=== PATIENT | female | born 1955 | race Caucasian/White ===

== ENCOUNTER 2016-08-11 11:04 | Emergency (ER) | payer BC ==
[~2016-08-11 11:04] MED LIST: COLA100C2 OR; MILKSUS OR; MIRALEX PO; OXYC5CAP4 OR; ZANA4CAP OR; [UNRECOGNIZED DRUG - OTHER]; lidoderm patch TD; senokot PO
[2016-08-11] MEDS ORDERED: ALBUTEROL 90 MCG/ACT 8GM HFA INHALER As Ordered ONE (11:53)
[2016-08-11 12:18] LABS: BASO % 0.5 % (0.0-1.0); EOS # 0.1 K/mm3 (0.0-0.50); EOS % 1.9 % (0.0-3.0); LARGE UNSTAINED CELL # 0.2 K/mm3 (0.0-0.4); LARGE UNSTAINED CELL % 2.6 % (0.0-4.0); LYMPH # 1.6 K/mm3 (1.5-4.5); LYMPH % 22.9 % (24.0-44.0); MEAN CORPUSCULAR HEMOGLOBIN 28.4 pg (27.0-33.0); MEAN CORPUSCULAR HGB CONC 32.7 g/dl (32.0-36.5); MEAN CORPUSCULAR VOLUME 86.8 fl (80.0-96.0); MONO # 0.3 K/mm3 (0.0-0.8); MONO % 4.6 % (0.0-5.0); NEUTROPHILS # 4.7 K/mm3 (1.8-7.7); NEUTROPHILS % 67.5 % (36.0-66.0); PLATELET COUNT, AUTOMATED 363 k/mm3 (150-450); RED CELL DISTRIBUTION WIDTH 12.8 % (11.5-14.5); WHITE BLOOD COUNT 6.9 K/mm3 (4.0-10.0)
--- NOTE | 2016-08-11 12:52 | EDDOCDS ---
Physician Documentation [facility] Name: Roxanna Wren Age: 60 yrs Sex: Female : 1955 Arrival Date: 08/11/2016 Time: 11:04 Bed I5 / M5 Private MD: Clay Perry MD Disposition: 08/11/16 12:38 Discharged to Home/Self Care. Impression: Acute bronchospasm. - Condition is Stable. - Discharge Instructions: Bronchospasm, Adult, Metered Dose Inhaler with Spacer. - Prescriptions for Claritin 10 mg Oral Tablet - take 1 tablet by ORAL route once daily As needed; 30 tablet. - Medication Reconciliation, Local Pharmacy Hours form. - Follow up: Clay Perry; When: Call to arrange an appointment; Reason: Recheck today's complaints, allergy referral. Follow up: Emergency Department; When: As needed; Reason: Trouble breathing, Worsening of conditions. - Problem is new. - Symptoms have improved. Historical: - Allergies: PENICILLINS (Unknown); - Home Meds: 1. [place] Oil 1,000 mg oral cap daily (Last dose: 08/11/2016 07:30) 2. aspirin 81 mg Oral tab 1 tab once daily (Last dose: 08/11/2016 07:30) 3. [place]-3 Fish Oil oral Unknown oral daily (Last dose: 08/11/2016 07:30) - PMHx: GERD; - PSHx: 2 C-sections; Breast Reduction; eyelid surgery; Tonsillectomy; Arthroscopy, Knee- Right; - Social history: Smoking status: Patient states was never smoker of tobacco. No barriers to communication noted, The patient speaks fluent [place]. - Family history: Not pertinent. - : The pt / caregiver states he / she is not on anticoagulants. Home medication list is obtained from the patient. - Exposure Risk Screening:: None identified. Vital Signs: 08/11 11:06 BP 144 / 87; Pulse 58; Resp 18 S; Temp 97.0(O); Pulse Ox 98% on R/A; Weight 85.73 kg / gr2 189 lbs (R); Height 5 ft. 4 in. (162.56 cm) (R); Pain 2/10; 12:49 BP 127 / 86; Pulse 61; Resp 18; Pulse Ox 97% on R/A; mcp 11:06 Body Mass Index 32.44 (85.73 kg, 162.56 cm) gr2 MDM: 11:21 ECG WITH READING ER PHYS+CARDIAG ordered. EDMS 11:43 Ventolin Inhaler 2 puffs Inhalation once ordered. ar2 11:43 MDI teaching with Spacer ordered. ar2 11:44 CBC with Diff Ordered. EDMS 11:44 Troponin Ordered. EDMS 11:58 Financial registration complete. lg 12:29 CBC with Diff Reviewed. ar2 12:29 Troponin Reviewed. ar2 Administered Medications: 12:01 Drug: Ventolin 2 puffs [Ventolin HFA 90 mcg/actuation aerosol inhaler (2 puffs)] Route: jjr Inhalation; Signatures: Dispatcher [employer] Gabrielle Hernandez RN RN kpj Peters, Mary, RN RN mcp Ganter, LoriLee, Darnell Reg Des Bryant PA-C PA-C ar2 Pham Younger RN jjr MTDD
--- NOTE | 2016-08-11 12:52 | EDDOCDS ---
Nurse's Notes [facility] Name: Roxanna Wren Age: 60 yrs Sex: Female : 1955 Arrival Date: 08/11/2016 Time: 11:04 Bed I5 / M5 Private MD: Clay Perry MD Diagnosis: Acute bronchospasm Presentation: 08/11 11:11 Presenting complaint: Patient states: got new furniture at work 1 month ago , began [facility] with tingling in lips ,now burning in throat, hard to breathe and was sweating and pains in her chest. symptoms resolve hours after leaving work. Onset: The symptoms/episode began/occurred 1 month(s) ago. This patient has not experienced a previous allergic reaction. Anaphylaxis evaluation, the patient reports or I have noted the following symptoms which indicate a significant risk of anaphylaxis: chest pain shortness of breath. Adult Sepsis Screening: The patient does not have new or worsening altered mentation. Patient's respiratory rate is less than 22. Systolic blood pressure is greater than 100. Patient has a qSOFA score of 0- Negative Sepsis Screen. Suicide/Homicide risk assessment- the patient denies having any suicidal and/or homicidal ideations and does not present with any other emotional, behavioral or mental health complaints. 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 Transition of care: patient was not received from another setting of care. 11:11 Acuity: GERALDINE Level 3 [facility] 11:11 Method Of Arrival: Walkin/Carried/Asstd [facility] Triage Assessment: 11:17 General: Appears in no apparent distress, comfortable, Behavior is appropriate for age, kpj pleasant. Pain: Location: mid-sternal area Pain currently is 2 out of 10 on a pain scale. Quality of pain is described as pressure. Pt Declines HIV testing. Neurological: Level of Consciousness is awake, alert, Oriented to person, place, time. EENT: Reports lips feel tingly. Cardiovascular: Chest pain quality is pressure, is located in substernal area. Respiratory: Airway is patent Respiratory effort is even, unlabored, Reports shortness of breath. Derm: Skin is pink, warm & dry. Historical: - Allergies: PENICILLINS (Unknown); - Home Meds: 1. [place] Oil 1,000 mg oral cap daily (Last dose: 08/11/2016 07:30) 2. aspirin 81 mg Oral tab 1 tab once daily (Last dose: 08/11/2016 07:30) 3. [place]-3 Fish Oil oral Unknown oral daily (Last dose: 08/11/2016 07:30) - PMHx: GERD; - PSHx: 2 C-sections; Breast Reduction; eyelid surgery; Tonsillectomy; Arthroscopy, Knee- Right; - Social history: Smoking status: Patient states was never smoker of tobacco. No barriers to communication noted, The patient speaks fluent Nigerien. - Family history: Not pertinent. - : The pt / caregiver states he / she is not on anticoagulants. Home medication list is obtained from the patient. - Exposure Risk Screening:: None identified. Screenin:03 Screening information is obtained from the patient. Fall risk: No risks identified. jjr Assistance ADL's: requires no assistance with activities of daily living. Abuse/DV Screen: The patient / caregiver reports he/she is: not in a situation that causes fear, pain or injury. Nutritional screening: No deficits noted. Advance Directives: There is no active DNR order. home support is adequate. Assessment: 12:01 General: Appears in no apparent distress, well nourished, well groomed, Behavior is jjr appropriate for age. Neurological: No deficits noted. Cardiovascular: Reports substernal chest heaviness and difficulty taking a deep breath, also reports intermittent lips tingling notices shortly after arriving to work place. Respiratory: Airway is patent Respiratory effort is even, unlabored, Respiratory pattern is regular, Breath sounds are clear bilaterally. Derm: No deficits noted. 12:50 General: Appears in no apparent distress, Behavior is cooperative. Neurological: No mcp deficits noted. Respiratory: Airway is patent Respiratory effort is even, unlabored. Derm: Skin is pink, warm & dry. Vital Signs: 11:06 BP 144 / 87; Pulse 58; Resp 18 S; Temp 97.0(O); Pulse Ox 98% on R/A; Weight 85.73 kg gr2 (R); Height 5 ft. 4 in. (162.56 cm) (R); Pain 2/10; 12:49 BP 127 / 86; Pulse 61; Resp 18; Pulse Ox 97% on R/A; mcp 11:06 Body Mass Index 32.44 (85.73 kg, 162.56 cm) gr2 Vitals: 11:06 Log In Time: August 11, 2016 at 11:06. gr2 ED Course: 11:05 Patient visited by Susie Younger. gr2 11:05 Clay Perry is Private Physician. gr2 11:05 Patient moved to Waiting gr2 11:07 Patient visited by Susie Younger. gr2 11:07 Patient moved to Pre RCE gr2 11:14 Triage Initiated kpj 11:20 Patient moved to Triage 1 kpj 11:20 Patient moved to Triage 3 srm 11:25 Des Overton PA-C is PHCP. ar2 11:25 Umberto Juarez MD is Attending Physician. ar2 11:30 EKG done. (by ED staff). Reviewed by Des Overton PA-C. rs6 11:32 Patient visited by Lilian Collier PCA. rs6 11:36 Patient visited by Des Overton PA-C. ar2 11:41 Patient moved to I5 / M5 [facility] 11:56 Troponin Sent. jam1 11:56 CBC with Diff Sent. jam1 12:03 Patient visited by Pham Younger RN. jjr 12:03 The patient / caregiver is instructed regarding the plan of care and ED course. jjr 12:10 Pt greeted and oriented to ED. Patient advised of names of staff involved in care, jam1 location of call [place], wait times and NPO status. Patient has correct armband on for positive identification. Side rails up X 1. Door closed. 12:34 Clay Prery is Referral Physician. ar2 12:51 No IV's were initiated during this patient's visit. No procedures done that require mcp assistance. Administered Medications: 12:01 Drug: Ventolin 2 puffs [Ventolin HFA 90 mcg/actuation aerosol inhaler (2 puffs)] Route: jjr Inhalation; Order Results: Lab Order: CBC with Diff; SPEC'M 08/11/16 11:55 Test: WHITE BLOOD COUNT; Value: 6.9; Range: 4.0-10.0; Units: K/mm3; Status: F Test: RED BLOOD COUNT; Value: 5.42; Range: 4.00-5.40; Abnormal: Above high normal; Units: M/mm3; Status: F Test: HEMOGLOBIN; Value: 15.4; Range: 12.0-16.0; Units: g/dl; Status: F Test: HEMATOCRIT; Value: 47.0; Range: 36.0-47.0; Units: %; Status: F Test: MEAN CORPUSCULAR VOLUME; Value: 86.8; Range: 80.0-96.0; Units: fl; Status: F Test: MEAN CORPUSCULAR HEMOGLOBIN; Value: 28.4; Range: 27.0-33.0; Units: pg; Status: F Test: MEAN CORPUSCULAR HGB CONC; Value: 32.7; Range: 32.0-36.5; Units: g/dl; Status: F Test: RED CELL DISTRIBUTION WIDTH; Value: 12.8; Range: 11.5-14.5; Units: %; Status: F Test: PLATELET COUNT, AUTOMATED; Value: 363; Range: 150-450; Units: k/mm3; Status: F Test: NEUTROPHILS %; Value: 67.5; Range: 36.0-66.0; Abnormal: Above high normal; Units: %; Status: F Test: LYMPH %; Value: 22.9; Range: 24.0-44.0; Abnormal: Below low normal; Units: %; Status: F Test: MONO %; Value: 4.6; Range: 0.0-5.0; Units: %; Status: F Test: EOS %; Value: 1.9; Range: 0.0-3.0; Units: %; Status: F Test: BASO %; Value: 0.5; Range: 0.0-1.0; Units: %; Status: F Test: LARGE UNSTAINED CELL %; Value: 2.6; Range: 0.0-4.0; Units: %; Status: F Test: NEUTROPHILS #; Value: 4.7; Range: 1.8-7.7; Units: K/mm3; Status: F Test: LYMPH #; Value: 1.6; Range: 1.5-4.5; Units: K/mm3; Status: F Test: MONO #; Value: 0.3; Range: 0.0-0.8; Units: K/mm3; Status: F Test: EOS #; Value: 0.1; Range: 0.0-0.50; Units: K/mm3; Status: F Test: BASO #; Value: 0.0; Range: 0.0-0.2; Units: K/mm3; Status: F Test: LARGE UNSTAINED CELL #; Value: 0.2; Range: 0.0-0.4; Units: K/mm3; Status: F Lab Order: Troponin; SPEC'M 08/11/16 11:55 Test: TROPONIN I; Value: < 0.02; Range: < 0.10; Units: NG/ML; Status: F Test Note: ; Troponin I Reference Interval for [place] LOCI: 99th Percentile= 0.00-0.045 ng/ml Risk Stratification: <= 0.10 ng/ml Decreased Risk for Adverse Clinical Events. 0.10-1.50 ng/ml Increased Risk for Adverse Clinical Events. Evaluation of additional criterion and/or repeat testing in 2-6 hours is suggested to rule out myocardial damage. >= 1.50 ng/ml Indicative of Myocardial Injury. Outcome: 12:38 Discharge ordered by Provider. ar2 12:51 Discharge Assessment: patient administered narcotics - no. The following High Risk [facility] Discharge criteria are identified: None. Discharged to home ambulatory. Condition: stable. Discharge instructions given to patient, Instructed on discharge instructions, follow up and referral plans. medication usage, Demonstrated understanding of instructions, medications, Pt was receptive of discharge instructions/ teaching. Prescriptions given X 1. No special radiology studies were completed. Property sent home with patient. 12:52 Patient left the ED. [facility] Signatures: Gabrielle Fuentes RN RN kpj Michelson, Staci, RN RN srm Peters, Mary, RN RN mcp Murphy, Jane, FRUIT DUMPER FRUIT DUMPER jam1 Pham Younger RN RN jjr Robertshaw, Aaron, JACINTA PAAmandaC ar2 Elizabeth Quinn,Susie Mejias RN 2 Lilian Collier, FRUIT DUMPER FRUIT DUMPER rs6 MTDD
--- NOTE | 2016-08-12 15:12 | ECGEPIP ---
Stationary ECG Study [facility] - ED Test Date: 2016-08-11 Pat Name: KHANG CORBETT Department: Room: - Gender: F Operator: jenny : 1955 Requested By: Umberto Rodriguez Order Number: [id number] Reading MD: Tish Young Measurements Intervals [place] Rate: 52 P: 38 GA: 102 QRS: 4 QRSD: 92 T: 47 QT: 405 QTc: 377 Interpretive Statements SINUS BRADYCARDIA WITH SHORT GA INTERVAL LOW QRS VOLTAGE IN PRECORDIAL LEADS NSTTW ABNORMALITY NO PRIOR FOR COMPARISON Electronically Signed On 08-12-2016 15:12:51 EST by Tish Young
--- NOTE | 2016-08-13 13:52 | EDDOCDS ---
Physician Documentation [facility] Name: Roxanna Cody Age: 60 yrs Sex: Female : 1955 Arrival Date: 08/11/2016 Time: 11:04 Bed I5 / M5 Private MD: Clay Perry MD Disposition: 08/11/16 12:38 Discharged to Home/Self Care. Impression: Acute bronchospasm. - Condition is Stable. - Discharge Instructions: Bronchospasm, Adult, Metered Dose Inhaler with Spacer. - Prescriptions for Claritin 10 mg Oral Tablet - take 1 tablet by ORAL route once daily As needed; 30 tablet. - Medication Reconciliation, Local Pharmacy Hours form. - Follow up: Clay Perry; When: Call to arrange an appointment; Reason: Recheck today's complaints, allergy referral. Follow up: Emergency Department; When: As needed; Reason: Trouble breathing, Worsening of conditions. - Problem is new. - Symptoms have improved. Historical: - Allergies: PENICILLINS (Unknown); - Home Meds: 1. [place] Oil 1,000 mg oral cap daily (Last dose: 08/11/2016 07:30) 2. aspirin 81 mg Oral tab 1 tab once daily (Last dose: 08/11/2016 07:30) 3. [place]-3 Fish Oil oral Unknown oral daily (Last dose: 08/11/2016 07:30) - PMHx: GERD; - PSHx: 2 C-sections; Breast Reduction; eyelid surgery; Tonsillectomy; Arthroscopy, Knee- Right; - Social history: Smoking status: Patient states was never smoker of tobacco. No barriers to communication noted, The patient speaks fluent [place]ayan. - Family history: Not pertinent. - : The pt / caregiver states he / she is not on anticoagulants. Home medication list is obtained from the patient. - Exposure Risk Screening:: None identified. Vital Signs: 08/11 11:06 BP 144 / 87; Pulse 58; Resp 18 S; Temp 97.0(O); Pulse Ox 98% on R/A; Weight 85.73 kg / gr2 189 lbs (R); Height 5 ft. 4 in. (162.56 cm) (R); Pain 2/10; 12:49 BP 127 / 86; Pulse 61; Resp 18; Pulse Ox 97% on R/A; mcp 11:06 Body Mass Index 32.44 (85.73 kg, 162.56 cm) gr2 MDM: 11:21 ECG WITH READING ER PHYS+CARDIAG ordered. EDMS 11:43 Ventolin Inhaler 2 puffs Inhalation once ordered. ar2 11:43 MDI teaching with Spacer ordered. ar2 11:44 CBC with Diff Ordered. EDMS 11:44 Troponin Ordered. EDMS 11:58 Financial registration complete. lg 12:29 CBC with Diff Reviewed. ar2 12:29 Troponin Reviewed. ar2 13:52 [facility] Payment Agreement was scanned into [employer] and attached to record. lg 21:20 T-Sheet-- Draft Copy was scanned into [employer] and attached to record. klr Administered Medications: 12:01 Drug: Ventolin 2 puffs [Ventolin HFA 90 mcg/actuation aerosol inhaler (2 puffs)] Route: jjr Inhalation; Signatures: Dispatcher [employer] EDGabrielle Womack RN RN kpj Peters, Mary, RN RN mcp Ganter, LoriLee, Reg Reg lg Robertshaw, Aaron, JACINTA PA-Louisa ar2 Carolina Schwarz Jessica RN jjr The chart was reviewed and I authenticate all verbal orders and agree with the evaluation and treatment provided.Attachments: 13:52 [facility] [place] Agreement lg 21:20 T-Sheet-- Draft Copy klr Chart Complete MTDD
--- NOTE | 2016-08-13 13:52 | EDDOCDS ---
Physician Documentation [facility] Name: Roxanna Cody Age: 60 yrs Sex: Female : 1955 Arrival Date: 08/11/2016 Time: 11:04 Bed I5 / M5 Private MD: Clay Perry MD Disposition: 08/11/16 12:38 Discharged to Home/Self Care. Impression: Acute bronchospasm. - Condition is Stable. - Discharge Instructions: Bronchospasm, Adult, Metered Dose Inhaler with Spacer. - Prescriptions for Claritin 10 mg Oral Tablet - take 1 tablet by ORAL route once daily As needed; 30 tablet. - Medication Reconciliation, Local Pharmacy Hours form. - Follow up: Clay Perry; When: Call to arrange an appointment; Reason: Recheck today's complaints, allergy referral. Follow up: Emergency Department; When: As needed; Reason: Trouble breathing, Worsening of conditions. - Problem is new. - Symptoms have improved. Historical: - Allergies: PENICILLINS (Unknown); - Home Meds: 1. [place] Oil 1,000 mg oral cap daily (Last dose: 08/11/2016 07:30) 2. aspirin 81 mg Oral tab 1 tab once daily (Last dose: 08/11/2016 07:30) 3. [place]-3 Fish Oil oral Unknown oral daily (Last dose: 08/11/2016 07:30) - PMHx: GERD; - PSHx: 2 C-sections; Breast Reduction; eyelid surgery; Tonsillectomy; Arthroscopy, Knee- Right; - Social history: Smoking status: Patient states was never smoker of tobacco. No barriers to communication noted, The patient speaks fluent Slovak. - Family history: Not pertinent. - : The pt / caregiver states he / she is not on anticoagulants. Home medication list is obtained from the patient. - Exposure Risk Screening:: None identified. Vital Signs: 08/11 11:06 BP 144 / 87; Pulse 58; Resp 18 S; Temp 97.0(O); Pulse Ox 98% on R/A; Weight 85.73 kg / gr2 189 lbs (R); Height 5 ft. 4 in. (162.56 cm) (R); Pain 2/10; 12:49 BP 127 / 86; Pulse 61; Resp 18; Pulse Ox 97% on R/A; mcp 11:06 Body Mass Index 32.44 (85.73 kg, 162.56 cm) gr2 MDM: 11:21 ECG WITH READING ER PHYS+CARDIAG ordered. EDMS 11:43 Ventolin Inhaler 2 puffs Inhalation once ordered. ar2 11:43 MDI teaching with Spacer ordered. ar2 11:44 CBC with Diff Ordered. EDMS 11:44 Troponin Ordered. EDMS 11:58 Financial registration complete. lg 12:29 CBC with Diff Reviewed. ar2 12:29 Troponin Reviewed. ar2 13:52 [facility] Payment Agreement was scanned into [employer] and attached to record. lg 21:20 T-Sheet-- Draft Copy was scanned into [employer] and attached to record. klr Administered Medications: 12:01 Drug: Ventolin 2 puffs [Ventolin HFA 90 mcg/actuation aerosol inhaler (2 puffs)] Route: jjr Inhalation; Signatures: Dispatcher [employer] EDGabrielle Womack RN RN kpj Peters, Mary, RN RN mcp Ganter, LoriLee, Reg Reg lg Robertshaw, Aaron, JACITNA PA-Louisa ar2 Carolina Schwarz Jessica RN jjr The chart was reviewed and I authenticate all verbal orders and agree with the evaluation and treatment provided.Attachments: 13:52 [facility] Payment Agreement lg 21:20 T-Sheet-- Draft Copy klr Chart Complete MTDD
--- NOTE | 2016-08-13 13:52 | EDDOCDS ---
Nurse's Notes [facility] Name: Roxanna Cody Age: 60 yrs Sex: Female : 1955 Arrival Date: 08/11/2016 Time: 11:04 Bed I5 / M5 Private MD: Clay Perry MD Diagnosis: Acute bronchospasm Presentation: 08/11 11:11 Presenting complaint: Patient states: got new furniture at work 1 month ago , began [facility] with tingling in lips ,now burning in throat, hard to breathe and was sweating and pains in her chest. symptoms resolve hours after leaving work. Onset: The symptoms/episode began/occurred 1 month(s) ago. This patient has not experienced a previous allergic reaction. Anaphylaxis evaluation, the patient reports or I have noted the following symptoms which indicate a significant risk of anaphylaxis: chest pain shortness of breath. Adult Sepsis Screening: The patient does not have new or worsening altered mentation. Patient's respiratory rate is less than 22. Systolic blood pressure is greater than 100. Patient has a qSOFA score of 0- Negative Sepsis Screen. Suicide/Homicide risk assessment- the patient denies having any suicidal and/or homicidal ideations and does not present with any other emotional, behavioral or mental health complaints. 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 Transition of care: patient was not received from another setting of care. 11:11 Acuity: GERALDINE Level 3 [facility] 11:11 Method Of Arrival: Walkin/Carried/[facility] Triage Assessment: 11:17 General: Appears in no apparent distress, comfortable, Behavior is appropriate for age, kpj pleasant. Pain: Location: mid-sternal area Pain currently is 2 out of 10 on a pain scale. Quality of pain is described as pressure. Pt Declines HIV testing. Neurological: Level of Consciousness is awake, alert, Oriented to person, place, time. EENT: Reports lips feel tingly. Cardiovascular: Chest pain quality is pressure, is located in substernal area. Respiratory: Airway is patent Respiratory effort is even, unlabored, Reports shortness of breath. Derm: Skin is pink, warm & dry. Historical: - Allergies: PENICILLINS (Unknown); - Home Meds: 1. [place] Oil 1,000 mg oral cap daily (Last dose: 08/11/2016 07:30) 2. aspirin 81 mg Oral tab 1 tab once daily (Last dose: 08/11/2016 07:30) 3. [place]-3 Fish Oil oral Unknown oral daily (Last dose: 08/11/2016 07:30) - PMHx: GERD; - PSHx: 2 C-sections; Breast Reduction; eyelid surgery; Tonsillectomy; Arthroscopy, Knee- Right; - Social history: Smoking status: Patient states was never smoker of tobacco. No barriers to communication noted, The patient speaks fluent Hebrew. - Family history: Not pertinent. - : The pt / caregiver states he / she is not on anticoagulants. Home medication list is obtained from the patient. - Exposure Risk Screening:: None identified. Screenin:03 Screening information is obtained from the patient. Fall risk: No risks identified. jjr Assistance ADL's: requires no assistance with activities of daily living. Abuse/DV Screen: The patient / caregiver reports he/she is: not in a situation that causes fear, pain or injury. Nutritional screening: No deficits noted. Advance Directives: There is no active DNR order. home support is adequate. Assessment: 12:01 General: Appears in no apparent distress, well nourished, well groomed, Behavior is jjr appropriate for age. Neurological: No deficits noted. Cardiovascular: Reports substernal chest heaviness and difficulty taking a deep breath, also reports intermittent lips tingling notices shortly after arriving to work place. Respiratory: Airway is patent Respiratory effort is even, unlabored, Respiratory pattern is regular, Breath sounds are clear bilaterally. Derm: No deficits noted. 12:50 General: Appears in no apparent distress, Behavior is cooperative. Neurological: No mcp deficits noted. Respiratory: Airway is patent Respiratory effort is even, unlabored. Derm: Skin is pink, warm & dry. Vital Signs: 11:06 BP 144 / 87; Pulse 58; Resp 18 S; Temp 97.0(O); Pulse Ox 98% on R/A; Weight 85.73 kg gr2 (R); Height 5 ft. 4 in. (162.56 cm) (R); Pain 2/10; 12:49 BP 127 / 86; Pulse 61; Resp 18; Pulse Ox 97% on R/A; mcp 11:06 Body Mass Index 32.44 (85.73 kg, 162.56 cm) gr2 Vitals: 11:06 Log In Time: August 11, 2016 at 11:06. gr2 ED Course: 11:05 Patient visited by Susie Younger. gr2 11:05 Clay Perry is Private Physician. gr2 11:05 Patient moved to Waiting gr2 11:07 Patient visited by Susie Younger. gr2 11:07 Patient moved to Pre RCE gr2 11:14 Triage Initiated kpj 11:20 Patient moved to Triage 1 kpj 11:20 Patient moved to Triage 3 srm 11:25 Des Overton PA-C is PHCP. ar2 11:25 Umberto Juarez MD is Attending Physician. ar2 11:30 EKG done. (by ED staff). Reviewed by Des Overton PA-C. rs6 11:32 Patient visited by Lilian Collier PCA. rs6 11:36 Patient visited by Des Overton PA-C. ar2 11:41 Patient moved to I5 / M5 cjh 11:56 Troponin Sent. jam1 11:56 CBC with Diff Sent. jam1 12:03 Patient visited by Pham Younger RN. jjr 12:03 The patient / caregiver is instructed regarding the plan of care and ED course. jjr 12:10 Pt greeted and oriented to ED. Patient advised of names of staff involved in care, jam1 location of call [place], wait times and NPO status. Patient has correct armband on for positive identification. Side rails up X 1. Door closed. 12:34 Clay Perry is Referral Physician. ar2 12:51 No IV's were initiated during this patient's visit. No procedures done that require mcp assistance. 13:52 [facility] [place] Agreement was scanned into [employer] and attached to record. lg 13:53 Patient name changed from Roxanna\S\Francie\S\Siena\S\ to Roxanna\S\Francie\S\Glo. EDMS 21:20 T-Sheet-- Draft Copy was scanned into [employer] and attached to record. klr 08/12 15:14 EKG-ADULT Returned. EDMS Administered Medications: 08/11 12:01 Drug: Ventolin 2 puffs [Ventolin HFA 90 mcg/actuation aerosol inhaler (2 puffs)] Route: jjr Inhalation; Order Results: Lab Order: CBC with Diff; SPEC'M 08/11/16 11:55 Test: WHITE BLOOD COUNT; Value: 6.9; Range: 4.0-10.0; Units: K/mm3; Status: F Test: RED BLOOD COUNT; Value: 5.42; Range: 4.00-5.40; Abnormal: Above high normal; Units: M/mm3; Status: F Test: HEMOGLOBIN; Value: 15.4; Range: 12.0-16.0; Units: g/dl; Status: F Test: HEMATOCRIT; Value: 47.0; Range: 36.0-47.0; Units: %; Status: F Test: MEAN CORPUSCULAR VOLUME; Value: 86.8; Range: 80.0-96.0; Units: fl; Status: F Test: MEAN CORPUSCULAR HEMOGLOBIN; Value: 28.4; Range: 27.0-33.0; Units: pg; Status: F Test: MEAN CORPUSCULAR HGB CONC; Value: 32.7; Range: 32.0-36.5; Units: g/dl; Status: F Test: RED CELL DISTRIBUTION WIDTH; Value: 12.8; Range: 11.5-14.5; Units: %; Status: F Test: PLATELET COUNT, AUTOMATED; Value: 363; Range: 150-450; Units: k/mm3; Status: F Test: NEUTROPHILS %; Value: 67.5; Range: 36.0-66.0; Abnormal: Above high normal; Units: %; Status: F Test: LYMPH %; Value: 22.9; Range: 24.0-44.0; Abnormal: Below low normal; Units: %; Status: F Test: MONO %; Value: 4.6; Range: 0.0-5.0; Units: %; Status: F Test: EOS %; Value: 1.9; Range: 0.0-3.0; Units: %; Status: F Test: BASO %; Value: 0.5; Range: 0.0-1.0; Units: %; Status: F Test: LARGE UNSTAINED CELL %; Value: 2.6; Range: 0.0-4.0; Units: %; Status: F Test: NEUTROPHILS #; Value: 4.7; Range: 1.8-7.7; Units: K/mm3; Status: F Test: LYMPH #; Value: 1.6; Range: 1.5-4.5; Units: K/mm3; Status: F Test: MONO #; Value: 0.3; Range: 0.0-0.8; Units: K/mm3; Status: F Test: EOS #; Value: 0.1; Range: 0.0-0.50; Units: K/mm3; Status: F Test: BASO #; Value: 0.0; Range: 0.0-0.2; Units: K/mm3; Status: F Test: LARGE UNSTAINED CELL #; Value: 0.2; Range: 0.0-0.4; Units: K/mm3; Status: F Lab Order: Troponin; SPEC'M 08/11/16 11:55 Test: TROPONIN I; Value: < 0.02; Range: < 0.10; Units: NG/ML; Status: F Test Note: ; Troponin I Reference Interval for Siemens Runfaces LOCI: 99th Percentile= 0.00-0.045 ng/ml Risk Stratification: <= 0.10 ng/ml Decreased Risk for Adverse Clinical Events. 0.10-1.50 ng/ml Increased Risk for Adverse Clinical Events. Evaluation of additional criterion and/or repeat testing in 2-6 hours is suggested to rule out myocardial damage. >= 1.50 ng/ml Indicative of Myocardial Injury. 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 ar2 12:51 Discharge Assessment: patient administered narcotics - no. The following High Risk [facility] Discharge criteria are identified: None. Discharged to home ambulatory. Condition: stable. Discharge instructions given to patient, Instructed on discharge instructions, follow up and referral plans. medication usage, Demonstrated understanding of instructions, medications, Pt was receptive of discharge instructions/ teaching. Prescriptions given X 1. No special radiology studies were completed. Property sent home with patient. 12:52 Patient left the ED. [facility] Signatures: Dispatcher [employer] EDMS Gabrielle Fuentes RN RN Tika Davila RN Keyana Diaz RN RN mcp Murphy, Jane, BUILDING MOVER BUILDING MOVER jam1 Zeus Loredo, Reg Reg Pham Younger RN RN jjr Robertshaw, Aaron, PA-C PA-C ar2 Elizabeth Quinn,RN RN [facility] Susie Younger 2 Lilian Collier, BUILDING MOVER BUILDING MOVER rs6 Carolina Schwarz Chart Complete MTDD
--- NOTE | 2016-08-13 22:16 | EDDOCDS ---
Physician Documentation [facility] Name: Roxanna Cody Age: 60 yrs Sex: Female : 1955 Arrival Date: 08/11/2016 Time: 11:04 Bed I5 / M5 Private MD: Clay Perry MD Disposition: 08/11/16 12:38 Discharged to Home/Self Care. Impression: Acute bronchospasm. - Condition is Stable. - Discharge Instructions: Bronchospasm, Adult, Metered Dose Inhaler with Spacer. - Prescriptions for Claritin 10 mg Oral Tablet - take 1 tablet by ORAL route once daily As needed; 30 tablet. - Medication Reconciliation, Local Pharmacy Hours form. - Follow up: Clay Perry; When: Call to arrange an appointment; Reason: Recheck today's complaints, allergy referral. Follow up: Emergency Department; When: As needed; Reason: Trouble breathing, Worsening of conditions. - Problem is new. - Symptoms have improved. Historical: - Allergies: PENICILLINS (Unknown); - Home Meds: 1. [place] Oil 1,000 mg oral cap daily (Last dose: 08/11/2016 07:30) 2. aspirin 81 mg Oral tab 1 tab once daily (Last dose: 08/11/2016 07:30) 3. [place]-3 Fish Oil oral Unknown oral daily (Last dose: 08/11/2016 07:30) - PMHx: GERD; - PSHx: 2 C-sections; Breast Reduction; eyelid surgery; Tonsillectomy; Arthroscopy, Knee- Right; - Social history: Smoking status: Patient states was never smoker of tobacco. No barriers to communication noted, The patient speaks fluent Namibian. - Family history: Not pertinent. - : The pt / caregiver states he / she is not on anticoagulants. Home medication list is obtained from the patient. - Exposure Risk Screening:: None identified. Vital Signs: 08/11 11:06 BP 144 / 87; Pulse 58; Resp 18 S; Temp 97.0(O); Pulse Ox 98% on R/A; Weight 85.73 kg / gr2 189 lbs (R); Height 5 ft. 4 in. (162.56 cm) (R); Pain 2/10; 12:49 BP 127 / 86; Pulse 61; Resp 18; Pulse Ox 97% on R/A; mcp 11:06 Body Mass Index 32.44 (85.73 kg, 162.56 cm) gr2 MDM: 11:21 ECG WITH READING ER PHYS+CARDIAG ordered. EDMS 11:43 Ventolin Inhaler 2 puffs Inhalation once ordered. ar2 11:43 MDI teaching with Spacer ordered. ar2 11:44 CBC with Diff Ordered. EDMS 11:44 Troponin Ordered. EDMS 11:58 Financial registration complete. lg 12:29 CBC with Diff Reviewed. ar2 12:29 Troponin Reviewed. ar2 13:52 [facility] Payment Agreement was scanned into [employer] and attached to record. lg 21:20 T-Sheet-- Draft Copy was scanned into [employer] and attached to record. klr Administered Medications: 12:01 Drug: Ventolin 2 puffs [Ventolin HFA 90 mcg/actuation aerosol inhaler (2 puffs)] Route: jjr Inhalation; Signatures: Dispatcher [employer] EDGabrielle Womack RN RN kpj Peters, Mary, RN RN mcp Ganter, LoriLee, Reg Reg lg Robertshaw, Aaron, JACINTA PA-Louisa ar2 Carolina Schwarz Jessica RN jjr The chart was reviewed and I authenticate all verbal orders and agree with the evaluation and treatment provided.Attachments: 13:52 [facility] [place] lg 21:20 T-Sheet-- Draft Copy klr Chart Complete MTDD
--- NOTE | 2016-08-13 22:16 | EDDOCDS ---
Physician Documentation [facility] Name: Roxanna Cody Age: 60 yrs Sex: Female : 1955 Arrival Date: 08/11/2016 Time: 11:04 Bed I5 / M5 Private MD: Clay Perry MD Disposition: 08/11/16 12:38 Discharged to Home/Self Care. Impression: Acute bronchospasm. - Condition is Stable. - Discharge Instructions: Bronchospasm, Adult, Metered Dose Inhaler with Spacer. - Prescriptions for Claritin 10 mg Oral Tablet - take 1 tablet by ORAL route once daily As needed; 30 tablet. - Medication Reconciliation, Local Pharmacy Hours form. - Follow up: Clay Perry; When: Call to arrange an appointment; Reason: Recheck today's complaints, allergy referral. Follow up: Emergency Department; When: As needed; Reason: Trouble breathing, Worsening of conditions. - Problem is new. - Symptoms have improved. Historical: - Allergies: PENICILLINS (Unknown); - Home Meds: 1. [place] Oil 1,000 mg oral cap daily (Last dose: 08/11/2016 07:30) 2. aspirin 81 mg Oral tab 1 tab once daily (Last dose: 08/11/2016 07:30) 3. [place]-3 Fish Oil oral Unknown oral daily (Last dose: 08/11/2016 07:30) - PMHx: GERD; - PSHx: 2 C-sections; Breast Reduction; eyelid surgery; Tonsillectomy; Arthroscopy, Knee- Right; - Social history: Smoking status: Patient states was never smoker of tobacco. No barriers to communication noted, The patient speaks fluent Lithuanian. - Family history: Not pertinent. - : The pt / caregiver states he / she is not on anticoagulants. Home medication list is obtained from the patient. - Exposure Risk Screening:: None identified. Vital Signs: 08/11 11:06 BP 144 / 87; Pulse 58; Resp 18 S; Temp 97.0(O); Pulse Ox 98% on R/A; Weight 85.73 kg / gr2 189 lbs (R); Height 5 ft. 4 in. (162.56 cm) (R); Pain 2/10; 12:49 BP 127 / 86; Pulse 61; Resp 18; Pulse Ox 97% on R/A; mcp 11:06 Body Mass Index 32.44 (85.73 kg, 162.56 cm) gr2 MDM: 11:21 ECG WITH READING ER PHYS+CARDIAG ordered. EDMS 11:43 Ventolin Inhaler 2 puffs Inhalation once ordered. ar2 11:43 MDI teaching with Spacer ordered. ar2 11:44 CBC with Diff Ordered. EDMS 11:44 Troponin Ordered. EDMS 11:58 Financial registration complete. lg 12:29 CBC with Diff Reviewed. ar2 12:29 Troponin Reviewed. ar2 13:52 [facility] Payment Agreement was scanned into [employer] and attached to record. lg 21:20 T-Sheet-- Draft Copy was scanned into [employer] and attached to record. klr Administered Medications: 12:01 Drug: Ventolin 2 puffs [Ventolin HFA 90 mcg/actuation aerosol inhaler (2 puffs)] Route: jjr Inhalation; Signatures: Dispatcher [employer] EDGabrielle Womack RN RN kpj Peters, Mary, RN RN mcp Ganter, LoriLee, Reg Reg lg Robertshaw, Aaron, JACINTA PA-Louisa ar2 Carolina Schwarz Jessica RN jjr The chart was reviewed and I authenticate all verbal orders and agree with the evaluation and treatment provided.Attachments: 13:52 [facility] [place] Agreement lg 21:20 T-Sheet-- Draft Copy klr Chart Complete MTDD
--- NOTE | 2016-08-13 22:16 | EDDOCDS ---
Nurse's Notes [facility] Name: Roxanna Cody Age: 60 yrs Sex: Female : 1955 Arrival Date: 08/11/2016 Time: 11:04 Bed I5 / M5 Private MD: Clay Perry MD Diagnosis: Acute bronchospasm Presentation: 08/11 11:11 Presenting complaint: Patient states: got new furniture at work 1 month ago , began [facility] with tingling in lips ,now burning in throat, hard to breathe and was sweating and pains in her chest. symptoms resolve hours after leaving work. Onset: The symptoms/episode began/occurred 1 month(s) ago. This patient has not experienced a previous allergic reaction. Anaphylaxis evaluation, the patient reports or I have noted the following symptoms which indicate a significant risk of anaphylaxis: chest pain shortness of breath. Adult Sepsis Screening: The patient does not have new or worsening altered mentation. Patient's respiratory rate is less than 22. Systolic blood pressure is greater than 100. Patient has a qSOFA score of 0- Negative Sepsis Screen. Suicide/Homicide risk assessment- the patient denies having any suicidal and/or homicidal ideations and does not present with any other emotional, behavioral or mental health complaints. Status: Patient is not a social services or dependent. Transition of care: patient was not received from another setting of care. 11:11 Acuity: GERALDINE Level 3 [facility] 11:11 Method Of Arrival: Walkin/Carried/Asstd [facility] Triage Assessment: 11:17 General: Appears in no apparent distress, comfortable, Behavior is appropriate for age, kpj pleasant. Pain: Location: mid-sternal area Pain currently is 2 out of 10 on a pain scale. Quality of pain is described as pressure. Pt Declines HIV testing. Neurological: Level of Consciousness is awake, alert, Oriented to person, place, time. EENT: Reports lips feel tingly. Cardiovascular: Chest pain quality is pressure, is located in substernal area. Respiratory: Airway is patent Respiratory effort is even, unlabored, Reports shortness of breath. Derm: Skin is pink, warm & dry. Historical: - Allergies: PENICILLINS (Unknown); - Home Meds: 1. [place] Oil 1,000 mg oral cap daily (Last dose: 08/11/2016 07:30) 2. aspirin 81 mg Oral tab 1 tab once daily (Last dose: 08/11/2016 07:30) 3. [place]-3 Fish Oil oral Unknown oral daily (Last dose: 08/11/2016 07:30) - PMHx: GERD; - PSHx: 2 C-sections; Breast Reduction; eyelid surgery; Tonsillectomy; Arthroscopy, Knee- Right; - Social history: Smoking status: Patient states was never smoker of tobacco. No barriers to communication noted, The patient speaks fluent Vietnamese. - Family history: Not pertinent. - : The pt / caregiver states he / she is not on anticoagulants. Home medication list is obtained from the patient. - Exposure Risk Screening:: None identified. Screenin:03 Screening information is obtained from the patient. Fall risk: No risks identified. jjr Assistance ADL's: requires no assistance with activities of daily living. Abuse/DV Screen: The patient / caregiver reports he/she is: not in a situation that causes fear, pain or injury. Nutritional screening: No deficits noted. Advance Directives: There is no active DNR order. home support is adequate. Assessment: 12:01 General: Appears in no apparent distress, well nourished, well groomed, Behavior is jjr appropriate for age. Neurological: No deficits noted. Cardiovascular: Reports substernal chest heaviness and difficulty taking a deep breath, also reports intermittent lips tingling notices shortly after arriving to work place. Respiratory: Airway is patent Respiratory effort is even, unlabored, Respiratory pattern is regular, Breath sounds are clear bilaterally. Derm: No deficits noted. 12:50 General: Appears in no apparent distress, Behavior is cooperative. Neurological: No mcp deficits noted. Respiratory: Airway is patent Respiratory effort is even, unlabored. Derm: Skin is pink, warm & dry. Vital Signs: 11:06 BP 144 / 87; Pulse 58; Resp 18 S; Temp 97.0(O); Pulse Ox 98% on R/A; Weight 85.73 kg gr2 (R); Height 5 ft. 4 in. (162.56 cm) (R); Pain 2/10; 12:49 BP 127 / 86; Pulse 61; Resp 18; Pulse Ox 97% on R/A; mcp 11:06 Body Mass Index 32.44 (85.73 kg, 162.56 cm) gr2 Vitals: 11:06 Log In Time: August 11, 2016 at 11:06. gr2 ED Course: 11:05 Patient visited by Susie Younger. gr2 11:05 Clay Perry is Private Physician. gr2 11:05 Patient moved to Waiting gr2 11:07 Patient visited by Susie Younger. gr2 11:07 Patient moved to Pre RCE gr2 11:14 Triage Initiated kpj 11:20 Patient moved to Triage 1 kpj 11:20 Patient moved to Triage 3 srm 11:25 Des Overton PA-C is PHCP. ar2 11:25 Umberto Juarez MD is Attending Physician. ar2 11:30 EKG done. (by ED staff). Reviewed by Des Overton PA-C. rs6 11:32 Patient visited by Lilian Collier PCA. rs6 11:36 Patient visited by Des Overton PA-C. ar2 11:41 Patient moved to I5 / M5 cjh 11:56 Troponin Sent. jam1 11:56 CBC with Diff Sent. jam1 12:03 Patient visited by Pham Younger RN. jjr 12:03 The patient / caregiver is instructed regarding the plan of care and ED course. jjr 12:10 Pt greeted and oriented to ED. Patient advised of names of staff involved in care, jam1 location of call [place], wait times and NPO status. Patient has correct armband on for positive identification. Side rails up X 1. Door closed. 12:34 Clay Perry is Referral Physician. ar2 12:51 No IV's were initiated during this patient's visit. No procedures done that require mcp assistance. 13:52 [facility] [place] Agreement was scanned into [email or web address] and attached to record. lg 13:53 Patient name changed from Roxanna\S\Francie\S\Siena\S\ to Roxanna\S\Francie\S\Glo. EDMS 21:20 T-Sheet-- Draft Copy was scanned into [email or web address] and attached to record. klr 08/12 15:14 EKG-ADULT Returned. EDMS Administered Medications: 08/11 12:01 Drug: Ventolin 2 puffs [Ventolin HFA 90 mcg/actuation aerosol inhaler (2 puffs)] Route: jjr Inhalation; Order Results: Lab Order: CBC with Diff; SPEC'M 08/11/16 11:55 Test: WHITE BLOOD COUNT; Value: 6.9; Range: 4.0-10.0; Units: K/mm3; Status: F Test: RED BLOOD COUNT; Value: 5.42; Range: 4.00-5.40; Abnormal: Above high normal; Units: M/mm3; Status: F Test: HEMOGLOBIN; Value: 15.4; Range: 12.0-16.0; Units: g/dl; Status: F Test: HEMATOCRIT; Value: 47.0; Range: 36.0-47.0; Units: %; Status: F Test: MEAN CORPUSCULAR VOLUME; Value: 86.8; Range: 80.0-96.0; Units: fl; Status: F Test: MEAN CORPUSCULAR HEMOGLOBIN; Value: 28.4; Range: 27.0-33.0; Units: pg; Status: F Test: MEAN CORPUSCULAR HGB CONC; Value: 32.7; Range: 32.0-36.5; Units: g/dl; Status: F Test: RED CELL DISTRIBUTION WIDTH; Value: 12.8; Range: 11.5-14.5; Units: %; Status: F Test: PLATELET COUNT, AUTOMATED; Value: 363; Range: 150-450; Units: k/mm3; Status: F Test: NEUTROPHILS %; Value: 67.5; Range: 36.0-66.0; Abnormal: Above high normal; Units: %; Status: F Test: LYMPH %; Value: 22.9; Range: 24.0-44.0; Abnormal: Below low normal; Units: %; Status: F Test: MONO %; Value: 4.6; Range: 0.0-5.0; Units: %; Status: F Test: EOS %; Value: 1.9; Range: 0.0-3.0; Units: %; Status: F Test: BASO %; Value: 0.5; Range: 0.0-1.0; Units: %; Status: F Test: LARGE UNSTAINED CELL %; Value: 2.6; Range: 0.0-4.0; Units: %; Status: F Test: NEUTROPHILS #; Value: 4.7; Range: 1.8-7.7; Units: K/mm3; Status: F Test: LYMPH #; Value: 1.6; Range: 1.5-4.5; Units: K/mm3; Status: F Test: MONO #; Value: 0.3; Range: 0.0-0.8; Units: K/mm3; Status: F Test: EOS #; Value: 0.1; Range: 0.0-0.50; Units: K/mm3; Status: F Test: BASO #; Value: 0.0; Range: 0.0-0.2; Units: K/mm3; Status: F Test: LARGE UNSTAINED CELL #; Value: 0.2; Range: 0.0-0.4; Units: K/mm3; Status: F Lab Order: Troponin; SPEC'M 08/11/16 11:55 Test: TROPONIN I; Value: < 0.02; Range: < 0.10; Units: NG/ML; Status: F Test Note: ; Troponin I Reference Interval for [employer] LOCI: 99th Percentile= 0.00-0.045 ng/ml Risk Stratification: <= 0.10 ng/ml Decreased Risk for Adverse Clinical Events. 0.10-1.50 ng/ml Increased Risk for Adverse Clinical Events. Evaluation of additional criterion and/or repeat testing in 2-6 hours is suggested to rule out myocardial damage. >= 1.50 ng/ml Indicative of Myocardial Injury. 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 ar2 12:51 Discharge Assessment: patient administered narcotics - no. The following High Risk [facility] Discharge criteria are identified: None. Discharged to home ambulatory. Condition: stable. Discharge instructions given to patient, Instructed on discharge instructions, follow up and referral plans. medication usage, Demonstrated understanding of instructions, medications, Pt was receptive of discharge instructions/ teaching. Prescriptions given X 1. No special radiology studies were completed. Property sent home with patient. 12:52 Patient left the ED. [facility] Signatures: Dispatcher [employer] EDMS Gabrielle Fuentes RN RN Tika Davila RN Keyana Diaz RN RN mcp Murphy, Jane, THEATER USHER THEATER USHER jam1 Zeus Loredo, Reg Reg Pham Younger RN RN jjr Robertshaw, Aaron, PA-C PA-C ar2 Elizabeth Quinn,RN RN [facility] Susie Younger 2 Lilian Collier, THEATER USHER THEATER USHER rs6 Carolina Schwarz Chart Complete MTDD
== END 2016-08-11 12:52 | disposition home or self-care (01) ==
LOC: M ED 11:04
DX: J98.01 Acute bronchospasm (principal); T78.40XA Allergy, unspecified, initial encounter; X58.XXXA Exposure to other specified factors, initial encounter; Y92.89 Other specified places as the place of occurrence of the external cause; Y93.89 Activity, other specified; Y99.8 Other external cause status; K21.9 Gastro-esophageal reflux disease without esophagitis; Z79.82 Long term (current) use of aspirin; Z79.899 Other long term (current) drug therapy; Z88.0 Allergy status to penicillin

== ENCOUNTER → 2016-10-04 | Outpatient (REF) | payer BC ==
[2016-10-04 12:03] LABS: MEAN CORPUSCULAR HEMOGLOBIN 28.5 pg (27.0-33.0); MEAN CORPUSCULAR HGB CONC 32.4 g/dl (32.0-36.5); MEAN CORPUSCULAR VOLUME 88.1 fl (80.0-96.0); WHITE BLOOD COUNT 6.1 K/mm3 (4.0-10.0)
[2016-10-04 12:20] LABS: ALBUMIN 3.8 GM/DL (3.2-5.2); ALBUMIN/GLOBULIN RATIO 1.15 (1.00-1.93); ALKALINE PHOSPHATASE 79 U/L (45-117); ALT/SGPT 27 U/L (12-78); ANION GAP 6 MEQ/L (8-16); AST/SGOT 14 U/L (15-37); BILIRUBIN,TOTAL 0.4 MG/DL (0.2-1.0); BLOOD UREA NITROGEN 11 MG/DL (7-18); CALCIUM LEVEL 8.7 MG/DL (8.5-10.1); CARBON DIOXIDE LEVEL 31 MEQ/L (21-32); CHLORIDE LEVEL 106 MEQ/L (98-107); CHOLESTEROL LEVEL 245 MG/DL (<200); CREATININE FOR GFR 0.74 MG/DL (0.55-1.02); GLOMERULAR FILTRATION RATE > 60.0 (>51); GLUCOSE, FASTING 99 MG/DL (70-105); POTASSIUM SERUM 4.4 MEQ/L (3.5-5.1); SODIUM LEVEL 143 MEQ/L (136-145); TOTAL PROTEIN 7.1 GM/DL (6.4-8.2); TRIGLYCERIDES LEVEL 139 MG/DL (<150)
== END ==
LOC: M SFHCLERA 09:30
PROVIDERS: ATTEND Family Medicine
DX: Z00.00 Encounter for general adult medical examination without abnormal findings (principal)

== ENCOUNTER → 2016-12-08 | Outpatient (CLI) | payer BC ==
--- NOTE | 2016-12-12 12:11 | SLEEPHOME ---
DATE OF PROCEDURE: 12/08/2016 ORDERED BY: Francie Acuna NP Diagnostic home sleep testing was performed due to concern for the obstructive sleep apnea syndrome. For testing, a NOX-T3 respiratory monitoring device was used. Continuous record was made of pulse, oxygen saturation, airflow, chest and abdominal strain, and body position. 9 hours and 59 minutes of data were reviewed. There were 6 hours and 20 minutes of time marked as time in bed. During the interval marked time in bed, there were 205 respiratory events identified of 10 seconds in duration or greater for a respiratory event index of 32.4. The events were primarily obstructive but some central and mixed apneas were also seen. Baseline pulse rate 63 beats per minute. Pulse rate ranged 48-90. Baseline saturation 91%. Lowest oxygen saturation 80%. Testing was performed in both the supine and non-supine positions. IMPRESSION: Abnormal home sleep testing with repetitive respiratory events and oxygen desaturations to 80% with a respiratory event index of 32.4 is consistent with severe obstructive sleep apnea syndrome. RECOMMENDATION: The patient should be referred for a formal sleep evaluation and in-laboratory pressure titration.
== END ==
LOC: M SLEEP HO 12:01
PROVIDERS: ATTEND Nurse Practitioner Adult Health
DX: G47.30 Sleep apnea, unspecified (principal)

== ENCOUNTER → 2017-09-16 | Outpatient (REF) | payer BC | LOC: M SFHCLERA 14:01 | DX: R30.0 Dysuria (principal) | CPT/HCPCS: 87086 ==

== ENCOUNTER → 2018-01-31 | Outpatient (REF) | payer BC ==
[2018-01-31 16:34] LABS: BASO % 0.7 % (0.0-1.0); EOS # 0.2 10^3/uL (0.0-0.50); EOS % 2.9 % (0.0-3.0); HEMATOCRIT 44.1 % (36.0-47.0); HEMOGLOBIN 14.5 g/dl (12.0-15.5); IMMATURE GRANULOCYTE % 0.2 % (0-3.0); LYMPH # 1.9 10^3/uL (1.5-4.5); LYMPH % 30.3 % (24.0-44.0); MEAN CORPUSCULAR HEMOGLOBIN 28.9 pg (27.0-33.0); MEAN CORPUSCULAR HGB CONC 32.9 g/dl (32.0-36.5); MONO # 0.4 10^3/uL (0.0-0.8); MONO % 6.7 % (0.0-5.0); NEUTROPHILS # 3.6 10^3/uL (1.8-7.7); NEUTROPHILS % 59.2 % (36.0-66.0); PLATELET COUNT, AUTOMATED 371 10^3/uL (150-450); RED BLOOD COUNT 5.01 10^6/uL (4.00-5.40); RED CELL DISTRIBUTION WIDTH 13.1 % (11.5-14.5); WHITE BLOOD COUNT 6.1 10^3/uL (4.0-10.0)
[2018-01-31 16:48] LABS: ALBUMIN 3.7 GM/DL (3.2-5.2); ALBUMIN/GLOBULIN RATIO 1.16 (1.00-1.93); ALKALINE PHOSPHATASE 69 U/L (45-117); ALT/SGPT 26 U/L (12-78); AMYLASE 57 U/L (25-115); ANION GAP 5 MEQ/L (8-16); AST/SGOT 13 U/L (7-37); BILIRUBIN,TOTAL 0.4 MG/DL (0.2-1.0); BLOOD UREA NITROGEN 9 MG/DL (7-18); CALCIUM LEVEL 8.8 MG/DL (8.8-10.2); CARBON DIOXIDE LEVEL 33 MEQ/L (21-32); CHLORIDE LEVEL 106 MEQ/L (98-107); CREATININE FOR GFR 0.71 MG/DL (0.55-1.30); GLOMERULAR FILTRATION RATE > 60.0 (>45); GLUCOSE, FASTING 90 MG/DL (70-100); LIPASE 206 U/L (73-393); SODIUM LEVEL 144 MEQ/L (136-145); TOTAL PROTEIN 6.9 GM/DL (6.4-8.2)
== END ==
LOC: M LABDRAW1 13:52
DX: R10.13 Epigastric pain (principal)
CPT/HCPCS: 82150

== ENCOUNTER 2018-11-11 03:36 | Emergency (ER) | payer BC ==
[~2018-11-11] VITALS: Ht 162.6 cm; Wt 83.6 kg
[2018-11-11] MEDS ORDERED: CVS10CAP7 PO (03:49)
[2018-11-11] MEDS ORDERED: FISH1000 PO (03:49)
[2018-11-11] MEDS ORDERED: ASPI81TA26 PO (03:49)
[2018-11-11 04:09] LABS: BASO # 0.1 10^3/uL (0.0-0.2); BASO % 0.6 % (0.0-1.0); EOS # 0.5 10^3/uL (0.0-0.50); EOS % 6.1 % (0.0-3.0); HEMATOCRIT 45.1 % (36.0-47.0); HEMOGLOBIN 14.9 g/dl (12.0-15.5); LYMPH # 2.5 10^3/uL (1.5-4.5); LYMPH % 32.3 % (24.0-44.0); MEAN CORPUSCULAR HEMOGLOBIN 28.8 pg (27.0-33.0); MEAN CORPUSCULAR VOLUME 87.2 fl (80.0-96.0); MONO # 0.6 10^3/uL (0.0-0.8); MONO % 7.3 % (0.0-5.0); NEUTROPHILS # 4.2 10^3/uL (1.8-7.7); NEUTROPHILS % 53.6 % (36.0-66.0); PLATELET COUNT, AUTOMATED 387 10^3/uL (150-450); RED BLOOD COUNT 5.17 10^6/uL (4.00-5.40); WHITE BLOOD COUNT 7.8 10^3/uL (4.0-10.0)
[2018-11-11 04:34] LABS: BLOOD UREA NITROGEN 15 MG/DL (7-18); CALCIUM LEVEL 8.8 MG/DL (8.8-10.2); CARBON DIOXIDE LEVEL 30 MEQ/L (21-32); CHLORIDE LEVEL 106 MEQ/L (98-107); CPK CREATINE PHOSPHOKINASE 102 U/L (26-192); CREATININE FOR GFR 0.67 MG/DL (0.55-1.30); GLOMERULAR FILTRATION RATE > 60.0 (>45); GLUCOSE, FASTING 102 MG/DL (70-100); MB/CK RELATIVE INDEX 1.47 (< OR =4); POTASSIUM SERUM 3.5 MEQ/L (3.5-5.1); SODIUM LEVEL 143 MEQ/L (136-145); TROPONIN I < 0.02 NG/ML (< 0.10)
[2018-11-11] MEDS ORDERED: GI COCKTAIL 50ML BTL(HYOSCYAMINE/MAALOX/LIDOCAINE VISCOUS)(1:3:1) PO ONE (05:00)
[2018-11-11] MEDS ORDERED: OMEP40CA2 PO (06:01)
[2018-11-11 06:30] VITALS: BP 135/85
--- NOTE | 2018-11-11 06:34 | ECGEPIP ---
[facility] - ED Test Date: 2018-11-11 Pat Name: KHANG TAMAYO Department: Room: - Gender: Female Hospital Liaison: RHONDA : 1955 Requested By: MAKSIM Aceves Order Number: [id number] Reading MD: Akbar Mendez Measurements Intervals [place] Rate: 52 P: 42 AK: 105 QRS: QRSD: 89 T: 28 QT: 412 QTc: 385 Interpretive Statements SINUS BRADYCARDIA WITH SHORT AK INTERVAL LOW QRS VOLTAGE IN PRECORDIAL LEADS BASELINE ARTIFACT AND WANDERING MAY AFFECT READING NONSPECIFIC ST T WAVE CHANGES CW 08/11/[address] T WAVE CHANGES Electronically Signed on 11-11-2018 6:33:52 EDT by Akbar Mendez
--- NOTE | 2018-11-11 08:22 | REP ---
Clinical: Acute chest pain . Comparison: 11/04/2010 . Findings: The mediastinum and cardiac silhouette are stable and within normal limits for portable technique. The lung khan are clear without acute consolidation, effusion, or pneumothorax. Skeletal structures are intact. Impression: No acute cardiopulmonary process appreciated. Electronically Signed by Lloyd Newell MD 11/11/2018 08:13 A
== END 2018-11-11 06:35 | disposition home or self-care (01) ==
LOC: M ED 03:36
DX: K21.9 Gastro-esophageal reflux disease without esophagitis (principal); R00.1 Bradycardia, unspecified; Z79.82 Long term (current) use of aspirin; Z79.899 Other long term (current) drug therapy; Z88.0 Allergy status to penicillin

== ENCOUNTER → 2019-02-15 | Outpatient (REF) | payer BC ==
[~2019-02-15] MED LIST changes: +ASPI81TA26 PO; +CVS10CAP7 PO; +FISH1000 PO; +OMEP40CA97 PO
[2019-02-15 13:22] LABS: BASO % 0.3 % (0.0-1.0); EOS # 0.2 10^3/uL (0.0-0.50); EOS % 2.9 % (0.0-3.0); HEMATOCRIT 44.9 % (36.0-47.0); HEMOGLOBIN 14.7 g/dl (12.0-15.5); LYMPH # 1.3 10^3/uL (1.5-4.5); MEAN CORPUSCULAR HEMOGLOBIN 29.8 pg (27.0-33.0); MEAN CORPUSCULAR HGB CONC 32.7 g/dl (32.0-36.5); MEAN CORPUSCULAR VOLUME 91.1 fl (80.0-96.0); MONO # 0.3 10^3/uL (0.0-0.8); MONO % 5.3 % (0.0-5.0); NEUTROPHILS # 4.4 10^3/uL (1.8-7.7); NEUTROPHILS % 70.2 % (36.0-66.0); PLATELET COUNT, AUTOMATED 332 10^3/uL (150-450); RED BLOOD COUNT 4.93 10^6/uL (4.00-5.40); WHITE BLOOD COUNT 6.2 10^3/uL (4.0-10.0)
[2019-02-15 13:39] LABS: ALBUMIN 3.6 GM/DL (3.2-5.2); ALT/SGPT 24 U/L (12-78); BILIRUBIN,TOTAL 0.4 MG/DL (0.2-1.0); BLOOD UREA NITROGEN 11 MG/DL (7-18); CALCIUM LEVEL 8.9 MG/DL (8.8-10.2); CARBON DIOXIDE LEVEL 28 MEQ/L (21-32); CHLORIDE LEVEL 107 MEQ/L (98-107); CHOLESTEROL LEVEL 251 MG/DL (<200); CHOLESTEROL RISK RATIO 4.254 (<5); CREATININE FOR GFR 0.64 MG/DL (0.55-1.30); GLOMERULAR FILTRATION RATE > 60.0 (>45); GLUCOSE, FASTING 104 MG/DL (70-100); HDL CHOLESTEROL 59 MG/DL (>40); LDL CHOLESTEROL 173 MG/DL (<100); NON-HDL-C 192 MG/DL; POTASSIUM SERUM 4.2 MEQ/L (3.5-5.1); SODIUM LEVEL 144 MEQ/L (136-145); TOTAL PROTEIN 6.5 GM/DL (6.4-8.2); TRIGLYCERIDES LEVEL 93 MG/DL (<150)
== END ==
LOC: M LABDRAW1 13:06
PROVIDERS: ATTEND Physician Assistant
DX: Z13.29 Encounter for screening for other suspected endocrine disorder (principal); Z13.220 Encounter for screening for lipoid disorders

== ENCOUNTER 2019-08-09 21:48 | Emergency (ER) | payer BC ==
[~2019-08-09] VITALS: Ht 162.6 cm; Wt 81.8 kg
[2019-08-09] MEDS ORDERED: GNP1000T11 PO (22:14)
[2019-08-09] MEDS ORDERED: MULTCAP PO (22:14)
[2019-08-09] MEDS ORDERED: EXCETAB33 PO (22:14)
[2019-08-09 22:28] LABS: BASO % 0.4 % (0.0-1.0); EOS # 0.2 10^3/uL (0.0-0.5); EOS % 1.4 % (0.0-3.0); HEMATOCRIT 44.9 % (36.0-47.0); HEMOGLOBIN 14.8 g/dl (12.0-15.5); LYMPH # 2.5 10^3/uL (1.5-5.0); LYMPH % 21.8 % (24.0-44.0); MEAN CORPUSCULAR HEMOGLOBIN 29.1 pg (27.0-33.0); MEAN CORPUSCULAR VOLUME 88.4 fl (80.0-96.0); MONO # 0.6 10^3/uL (0.0-0.8); MONO % 5.4 % (0.0-5.0); NEUTROPHILS % 70.8 % (36.0-66.0); PLATELET COUNT, AUTOMATED 375 10^3/uL (150-450); RED BLOOD COUNT 5.08 10^6/uL (4.00-5.40); WHITE BLOOD COUNT 11.3 10^3/uL (4.0-10.0)
[2019-08-09] MEDS ORDERED: GI COCKTAIL 50ML BTL(HYOSCYAMINE/MAALOX/LIDOCAINE VISCOUS)(1:3:1) PO ONE (22:30)
[2019-08-09 22:52] LABS: BLOOD UREA NITROGEN 16 MG/DL (7-18); CALCIUM LEVEL 8.5 MG/DL (8.8-10.2); CARBON DIOXIDE LEVEL 28 MEQ/L (21-32); CHLORIDE LEVEL 108 MEQ/L (98-107); CK-MB VALUE MASS 1.2 NG/ML (<3.6); CPK CREATINE PHOSPHOKINASE 79 U/L (26-192); GLOMERULAR FILTRATION RATE > 60.0 (>45); GLUCOSE, FASTING 91 MG/DL (70-100); MB/CK RELATIVE INDEX 1.52 (< OR =4); POTASSIUM SERUM 3.3 MEQ/L (3.5-5.1); SODIUM LEVEL 140 MEQ/L (136-145); TROPONIN I < 0.02 NG/ML (< 0.10)
[2019-08-10] MEDS ORDERED: PEPC1TAB5 PO (00:09)
[2019-08-10] MEDS ORDERED: PROT1TAB2 PO (00:09)
[2019-08-10] MEDS ORDERED: CARA1TAB6 PO (00:09)
[2019-08-10] MEDS ORDERED: PANTOPRAZOLE 40MG TAB (PROTONIX) PO ONE (00:15)
[2019-08-10] MEDS ORDERED: POTASSIUM CHLORIDE 10 MEQ SR TABLET PO ONE (00:15)
[2019-08-10] MEDS ORDERED: SUCRALFATE 1 GM TAB PO ONE (00:15)
[2019-08-10] MEDS ORDERED: FAMOTIDINE 20 MG TAB PO ONE (00:15)
[2019-08-10 01:06] VITALS: BP 130/78
--- NOTE | 2019-08-10 08:32 | REP ---
Portable chest, 10:24 p.m., single AP view with the patient sitting: Comparison is 11/11/2018. The lung khan are clear. The cardiac size is normal. The lilliam, mediastinum, and skeletal structures are unremarkable. Impression: Negative portable chest. There is no interval change. Electronically Signed by Aníbal Bliss MD 08/10/2019 08:23 A
--- NOTE | 2019-08-11 20:40 | ECGEPIP ---
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
== END 2019-08-10 01:07 | disposition home or self-care (01) ==
LOC: M ED 21:48
DX: K21.9 Gastro-esophageal reflux disease without esophagitis (principal); K58.9 Irritable bowel syndrome, unspecified; Z79.899 Other long term (current) drug therapy; Z79.82 Long term (current) use of aspirin; Z88.0 Allergy status to penicillin

== ENCOUNTER → 2019-09-09 | Outpatient (REF) | payer BC ==
[~2019-09-09] MED LIST changes: +CARA1TAB6 PO; +EXCETAB33 PO; +GNP1000T11 PO; +MULTCAP PO; +PEPC1TAB5 PO; +PROT1TAB2 PO
== END ==
LOC: M LAB REF 17:11
PROVIDERS: ATTEND Physician Assistant
DX: D22.5 Melanocytic nevi of trunk (principal)

== ENCOUNTER → 2020-02-11 | Outpatient (CLI) | payer BC | LOC: M LABSMTC 14:05 | PROVIDERS: ATTEND Family Medicine | DX: Z11.59 Encounter for screening for other viral diseases (principal) | CPT/HCPCS: C9803; U0003 ==

== ENCOUNTER → 2020-07-31 | Outpatient (REF) | payer BC | LOC: M SFHCWAGY 13:46 | PROVIDERS: ATTEND Nurse Practitioner Women's Health | DX: Z12.4 Encounter for screening for malignant neoplasm of cervix (principal); Z01.419 Encounter for gynecological examination (general) (routine) without abnormal findings ==

== ENCOUNTER → 2020-07-31 | Outpatient (CLI) | payer BC ==
--- NOTE | 2020-07-31 12:59 | DEXAMM ---
INDICATION: Z78.0 POSTMENOPAUSAL/Z13/820 SCR FOR OSTEOPOROSIS. COMPARISON: 10/20/2014 and 11/05/2009. TECHNIQUE: Bone density was measured using dual-energy x-ray absorptiometry (DEXA). FINDINGS: AP SPINE L1-L4 BMD 1.343 g/cm2 Young Adult T-Score 1.2 Age Matched Z-Score 2.6. LT FEMUR, TOTAL BMD 1.032 g/cm2 Young Adult T-Score 0.2 Age Matched Z-Score 1.3. LT NECK BMD 0.909 g/cm2 Young Adult T-Score -0.9 Age Matched Z-Score 0.4. RT FEMUR, TOTAL BMD 0.993 g/cm2 Young Adult T-Score -0.1 Age Matched Z-Score 1.0. RT NECK BMD 0.935 g/cm2 Young Adult T-Score -0.7 Age Matched Z-Score 0.6. IMPRESSION: There is normal bone density of the spine. There is normal bone density of the left hip. There is normal bone density of the right hip. The density of the spine has decreased 6.2% since the initial exam on 11/05/2009. The density of the spine decreased 6.2% since most recent exam on 10/20/2014. The density of the left hip has decreased 9.9% since initial exam on 11/05/2009. The density of the left hip has decreased 2.7% since most recent exam on 10/20/2014. The density of the right hip has decreased 12.8% since the initial exam on 11/05/2009. The density of the right hip has decreased 6.1% since the most recent exam on 10/20/2014. FOLLOW-UP: Recommendation for the next bone density exam: 2 years. <Electronically signed by Aníbal Sosa > 07/31/20 [id number]
== END ==
LOC: M WHC 10:52
PROVIDERS: ATTEND Nurse Practitioner Women's Health
DX: Z78.0 Asymptomatic menopausal state (principal); Z13.820 Encounter for screening for osteoporosis

== ENCOUNTER → 2020-08-11 | Outpatient (CLI) | payer BC ==
--- NOTE | 2020-08-11 15:32 | REP ---
INDICATION: N93.9 ABNORMAL UTERINE BLEEDING,N95.0 POSTMENOPAUSAL BLEEDING. COMPARISON: None. TECHNIQUE: Transabdominal and transvaginal scanning performed. FINDINGS: Uterine dimensions are 5.5 x 2.9 x 4.7 cm. Endometrial echo is 2 mm in AP dimension and centrally placed. A focal fibroid is suspected posteriorly in the uterus measuring 8 x 6 x 7 mm, and another is suspected in the mid uterus measuring 1.2 x 1.2 x 1.7 cm. The bladder measures 11.6 x 8.1 x 9.1 cm. The right ovary has dimensions of 1.1 x 1.3 x 1.1 cm. The left ovary dimensions are 1.2 x 0.7 x 0.8 cm. There is no adnexal mass identified. No free fluid is seen in the cul-de-sac. IMPRESSION: No sonographic evidence of significant endometrial thickening. Two suspected fibroids in the uterus. No adnexal mass or free fluid. <Electronically signed by Aníbal Sosa > 08/11/20 [id number]
== END ==
LOC: M WHC 11:18
PROVIDERS: ATTEND Nurse Practitioner Women's Health
DX: N93.9 Abnormal uterine and vaginal bleeding, unspecified (principal); N95.0 Postmenopausal bleeding

== ENCOUNTER → 2020-12-30 | Outpatient (CLI) | payer BC ==
[~2020-12-30] MED LIST changes: +OMEP40CA4 PO; -OMEP40CA97 PO
--- NOTE | 2020-12-30 11:03 | REP ---
INDICATION: PAIN. COMPARISON: None. TECHNIQUE: Single weight-bearing view of the pelvis. FINDINGS: Osseous structures and joint spaces are relatively intact, symmetric, and age-appropriate. No obvious overt osteoarthritic degenerative changes. No evidence for acute or healed injury. IMPRESSION: Essentially age-appropriate normal examination. <Electronically signed by Lloyd Newell > 12/30/20 1100
--- NOTE | 2020-12-30 11:04 | REP ---
INDICATION: PAIN COMPARISON: None. TECHNIQUE: AP and frog-lateral views of the right and left hip FINDINGS: Generalized age-related changes include subtle increased sclerosis to the acetabulum with minimal joint space narrowing. No further overt osteoarthritic or significant degenerative changes are appreciated. No evidence for acute or healed injury. Surrounding soft tissues are normal. IMPRESSION: Mild generalized age-related changes. <Electronically signed by Lloyd Newell > 12/30/20 1100
== END ==
LOC: M SOG 09:27
PROVIDERS: ATTEND Orthopaedic Surgery Adult Reconstructive Orthopaedic Surgery
DX: M25.551 Pain in right hip (principal); M25.552 Pain in left hip

== ENCOUNTER → 2021-01-20 | Outpatient (CLI) | payer BC ==
[~2021-01-20] MED LIST changes: +ALLE180T33 PO; +CO Q100C10 PO; +IBUP-1022 PO; +PRAV20TA2 PO; +VITA200030 PO; +VITA500C24 PO; +VITA500T40 PO; +VITMTA PO; +[UNRECOGNIZED DRUG - OTHER] PO
== END ==
LOC: M LABSMTC 12:09
PROVIDERS: ATTEND Anesthesiology
DX: Z01.818 Encounter for other preprocedural examination (principal); Z11.52 Encounter for screening for COVID-19

== ENCOUNTER 2021-01-25 11:29 | Day surgery (SDC) | payer BC ==
[~2021-01-25] VITALS: Ht 160 cm; Wt 80.7 kg
[~2021-01-25 11:29] MED LIST changes: +NS 1,000 ML IV ONE
[2021-01-25] MEDS ORDERED: LIDOCAINE 2% 100MG/5ML SDV (FOR ANES.) As Ordered ONE (11:45)
[2021-01-25] MEDS ORDERED: fentaNYL 100 MCG/2 ML INJECTION (J3010) As Ordered ONE (11:45)
[2021-01-25] MEDS ORDERED: propofoL 200 MG/20 ML VIAL As Ordered ONE (11:45)
--- NOTE | 2021-01-25 12:37 | ROOR ---
Patient Name: Roxanna Sandra Procedure Date: 01/25/2021 12:23 PM Date of : 1955 Age: 65 Room: [facility] Gender: Female Note Status: Finalized Procedure: Upper GI endoscopy Indications: Generalized abdominal pain Providers: Isaac Ibanez Jr, MD Referring MD: Estefany MILLER DO Requesting Provider: Medicines: Propofol per Anesthesia Complications: No immediate complications. Procedure: Pre-Anesthesia Assessment: - Prior to the procedure, a History and Physical was performed, and patient medications and allergies were reviewed. The patient is competent. The risks and benefits of the procedure and the sedation options and risks were discussed with the patient. All questions were answered and informed consent was obtained. Patient identification and proposed procedure were verified by the physician and the nurse in the pre-procedure area and in the procedure room. Mental Status Examination: alert and oriented. Airway Examination: normal oropharyngeal airway and neck mobility. Respiratory Examination: clear to auscultation. CV Examination: normal. ASA Grade Assessment: II - A patient with mild systemic disease. After reviewing the risks and benefits, the patient was deemed in satisfactory condition to undergo the procedure. The anesthesia plan was to use moderate sedation / analgesia (conscious sedation). Immediately prior to administration of medications, the patient was re-assessed for adequacy to receive sedatives. The heart rate, respiratory rate, oxygen saturations, blood pressure, adequacy of pulmonary ventilation, and response to care were monitored throughout the procedure. The physical status of the patient was re-assessed after the procedure. The Endoscope was introduced through the mouth, and advanced to the second part of duodenum. The upper GI endoscopy was accomplished without difficulty. The patient tolerated the procedure well. Findings: The upper third of the esophagus, middle third of the esophagus, lower third of the esophagus and gastroesophageal junction were normal. The cardia, gastric fundus and gastric body were normal. Striped mildly erythematous mucosa without bleeding was found in the gastric antrum and in the prepyloric region of the stomach. Biopsies were taken with a cold forceps for histology. The duodenal bulb, first portion of the duodenum and second portion of the duodenum were normal. Biopsies for histology were taken with a cold forceps for evaluation of celiac disease. Impression: - Normal upper third of esophagus, middle third of esophagus, lower third of esophagus and gastroesophageal junction. - Normal cardia, gastric fundus and gastric body. - Erythematous mucosa in the antrum and prepyloric region of the stomach. Biopsied. - Normal duodenal bulb, first portion of the duodenum and second portion of the duodenum. Biopsied. Recommendation: - Discharge patient to home (ambulatory). - Return to my office as previously scheduled. Procedure Code(s): --- Professional --- 15546, Esophagogastroduodenoscopy, flexible, transoral; with biopsy, single or multiple Diagnosis Code(s): --- Professional --- K31.89, Other diseases of stomach and duodenum R10.84, Generalized abdominal pain CPT copyright 2019 [employer]. All rights reserved. The codes documented in this report are preliminary and upon patient service associate review may be revised to meet current compliance requirements. Isaac Ibanez MD Isaac Ibanez Jr, MD 01/25/2021 12:36:59 PM Electronically signed by Isaac Ibanez Jr, MD Number of Addenda: 0 Note Initiated On: 01/25/2021 12:23 PM Estimated Blood Loss: Estimated blood loss: none.
--- NOTE | 2021-01-25 12:49 | ROOR ---
Patient Name: Roxanna Sandra Procedure Date: 01/25/2021 12:23 PM Date of : 1955 Age: 65 Room: [facility] Gender: Female Note Status: Finalized Procedure: Colonoscopy Indications: Generalized abdominal pain Providers: Isaac Ibanez Jr, MD Referring MD: Estefany MILLER DO Requesting Provider: Medicines: Propofol per Anesthesia Complications: No immediate complications. Procedure: Pre-Anesthesia Assessment: - Prior to the procedure, a History and Physical was performed, and patient medications and allergies were reviewed. The patient is competent. The risks and benefits of the procedure and the sedation options and risks were discussed with the patient. All questions were answered and informed consent was obtained. Patient identification and proposed procedure were verified by the physician and the nurse in the pre-procedure area and in the procedure room. Mental Status Examination: alert and oriented. Airway Examination: normal oropharyngeal airway and neck mobility. Respiratory Examination: clear to auscultation. CV Examination: normal. ASA Grade Assessment: II - A patient with mild systemic disease. After reviewing the risks and benefits, the patient was deemed in satisfactory condition to undergo the procedure. The anesthesia plan was to use moderate sedation / analgesia (conscious sedation). Immediately prior to administration of medications, the patient was re-assessed for adequacy to receive sedatives. The heart rate, respiratory rate, oxygen saturations, blood pressure, adequacy of pulmonary ventilation, and response to care were monitored throughout the procedure. The physical status of the patient was re-assessed after the procedure. The Colonoscope was introduced through the anus and advanced to the cecum, identified by appendiceal orifice and ileocecal valve. The quality of the bowel preparation was adequate. The colonoscopy was performed without difficulty. Findings: The rectum, recto-sigmoid colon, sigmoid colon, descending colon, splenic flexure, transverse colon, ascending colon, cecum, appendiceal orifice and ileocecal valve appeared normal. Biopsies for histology were taken with a cold forceps from the cecum, ascending colon, transverse colon, descending colon and sigmoid colon for evaluation of microscopic colitis. Impression: - The rectum, recto-sigmoid colon, sigmoid colon, descending colon, splenic flexure, transverse colon, ascending colon, cecum, appendiceal orifice and ileocecal valve are normal. Biopsied. Recommendation: - Discharge patient to home (ambulatory). - Repeat colonoscopy in 10 years for screening purposes. Procedure Code(s): --- Professional --- 50073, Colonoscopy, flexible; with biopsy, single or multiple Diagnosis Code(s): --- Professional --- R10.84, Generalized abdominal pain CPT copyright 2019 [employer]. All rights reserved. The codes documented in this report are preliminary and upon six color press operator review may be revised to meet current compliance requirements. Isaac Ibanez MD Isaac Ibanez Jr, MD 01/25/2021 12:49:32 PM Electronically signed by Isaac Ibanez Jr, MD Number of Addenda: 0 Note Initiated On: 01/25/2021 12:23 PM Estimated Blood Loss: Estimated blood loss: none.
[2021-01-25 13:14] VITALS: BP 114/66
== END 2021-01-25 13:17 | disposition home or self-care (01) ==
LOC: M OPP 11:29
PROVIDERS: ATTEND Surgery
DX: R10.84 Generalized abdominal pain (principal); K31.89 Other diseases of stomach and duodenum; R19.7 Diarrhea, unspecified; R11.11 Vomiting without nausea; Z79.82 Long term (current) use of aspirin; Z79.899 Other long term (current) drug therapy; Z80.0 Family history of malignant neoplasm of digestive organs; Z91.048 Other nonmedicinal substance allergy status
CPT/HCPCS: 43239; 45380; 88305; J3010

== ENCOUNTER → 2021-02-05 | Outpatient (CLI) | payer BC ==
[~2021-02-05] MED LIST changes: -NS 1,000 ML IV ONE
--- NOTE | 2021-02-05 11:37 | REP ---
INDICATION: ABD PAIN. COMPARISON: 03/01/2010. TECHNIQUE: Real-time sonographic evaluation of right upper quadrant performed. FINDINGS: The gallbladder demonstrates no evidence of intraluminal sludge or calculi, wall thickening or pericholecystic fluid. There is no intrahepatic or extrahepatic biliary dilatation, common bile duct measures 4 mm in maximum diameter. Liver demonstrates diffuse increased echotexture compatible with diffuse fibrofatty infiltration. There is a cyst centrally in the liver measuring 1.3 cm in diameter. Pancreas is not optimally visualized due to overlying bowel gas, but the visualized portions appear grossly unremarkable. The right kidney demonstrates no hydronephrosis, with a normal size of 11.0 cm in length. No free fluid is seen. IMPRESSION: No gallstones, gallbladder wall thickening or pericholecystic fluid. Diffuse fibrofatty infiltration of the liver. <Electronically signed by Aníbal Sosa > 02/05/21 1137
== END ==
LOC: M RAD 10:12
PROVIDERS: ATTEND Physician Assistant
DX: R10.84 Generalized abdominal pain (principal); K76.0 Fatty (change of) liver, not elsewhere classified

== ENCOUNTER → 2021-05-05 | Outpatient (REF) | payer BC | LOC: M LAB REF 16:59 | PROVIDERS: ATTEND Family Medicine | DX: N39.490 Overflow incontinence (principal) ==

== ENCOUNTER → 2021-05-10 | Outpatient (REF) | payer BC | LOC: M LAB REF 17:08 | PROVIDERS: ATTEND Family Medicine | DX: N39.490 Overflow incontinence (principal) ==

== ENCOUNTER → 2021-06-15 | Outpatient (REF) | payer BC | LOC: M LAB REF 16:56 | PROVIDERS: ATTEND Physician Assistant | DX: N39.0 Urinary tract infection, site not specified (principal) ==

== ENCOUNTER → 2023-08-28 | Outpatient (CLI) | payer BC ==
[~2023-08-28] MED LIST changes: +EXCETAB32 PO; -EXCETAB33 PO
== END ==
LOC: M RAD 10:24
PROVIDERS: ATTEND Physician Assistant
DX: J20.9 Acute bronchitis, unspecified (principal)